=== PATIENT | male | born 1960 | race Caucasian/White ===

== ENCOUNTER 2019-07-03 16:04 | Emergency (ER) | payer OTHER ==
[2019-07-03 16:27] VITALS: PULSE 75; O2SAT 99
[2019-07-03] MEDS ORDERED: Adacel Vial IM ONE ×2 (16:35→16:41)
--- NOTE | 2019-07-03 16:56 | ERPHSYRPT ---
- History of Present Illness Time Seen by Provider: 07/03/19 16:20 Source: patient Exam Limitations: no limitations Patient Subjective Stated Complaint: pt stated that he cut his thumb with a box knife, pt stated that the pain is 5/10 Triage Nursing Assessment: pt ambulated into er, pt has laceration left thumb, moderate bleeding present, pt hypertensive, laceration measures 2 cm Physician History: Patient cut his left thumb with a knife one hours prior to coming into the emergency department. Occurred: just prior to arrival Method of Injury: incised Quality: constant Severity of Pain-Max: moderate Severity of Pain-Current: mild Extremities Pain Location: thumb: left (dorsum of thumb) Modifying Factors: Improves With: movement (gapes it open and worsens bleeding) Associated Symptoms: none, No back pain, No chest discomfort, No chest pain, No dyspnea, No fever, No jaw pain, No nausea, No neck pain, No sweating, No short of breath, No vomiting Allergies/Adverse Reactions: Penicillins Allergy (Severe, Verified 12/12/15 09:14) Hives Home Medications: Lorazepam 0.5 mg [Ativan 0.5 MG] 1 tab PO TID PRN 12/12/15 [History] Amlodipine Besylate 5 mg PO DAILY 07/03/19 [History] Doxazosin Mesylate 4 mg PO DAILY 07/03/19 [History] Escitalopram Oxalate [Lexapro] 20 mg PO DAILY 07/03/19 [History] Metoprolol Succinate 50 mg PO DAILY 07/03/19 [History] Hx Tetanus, Diphtheria Vaccination/Date Given: No Hx Influenza Vaccination/Date Given: No Hx Pneumococcal Vaccination/Date Given: No - Review of Systems Constitutional: No Fever, No Lethargy Eyes: No Eye Pain, No Vision Changes Ears, Nose, & Throat: No Ear Pain, No Nose Pain, No Epistaxis, No Mouth Swelling , No Loose Teeth Respiratory: No Cough Cardiac: No Chest Pain Abdominal/Gastrointestinal: No Abdominal Pain, No Nausea, No Vomiting Genitourinary Symptoms: No Flank Pain Musculoskeletal: No Back Pain, No Neck Pain Skin: No Rash Neurological: No Focal Weakness, No Headache Psychological: No Anxiety, No Emotional Lability Hematologic/Lymphatic: No Easy Bleeding, No Easy Bruising - Past Medical History Pertinent Past Medical History: Yes Neurological History: No Pertinent History ENT History: No Pertinent History Cardiac History: Hypertension Respiratory History: Pneumonia Endocrine Medical History: No Pertinent History Musculoskeletal History: Arthritis GI Medical History: No Pertinent History History: No Pertinent History Psycho-Social History: No Pertinent History Male Reproductive Disorders: No Pertinent History Other Medical History: c 6-7 fusion. recent sinus draiange - Past Surgical History Past Surgical History: Yes Neuro Surgical History: Other Cardiac: No Pertinent History Respiratory: No Pertinent History Gastrointestinal: No Pertinent History Genitourinary: No Pertinent History Musculoskeletal: Orthopedic Surgery Male Surgical History: Vasectomy Other Surgical History: c6-7 fusion, right hand surgery, hernia repair - Social History Smoking Status: Former smoker Exposure to second hand smoke: Yes Drug Use: none Patient Lives Alone: No - Nursing Vital Signs Nursing Vital Signs: Initial Vital Signs Temperature 98.9 F 07/03/19 16:16 Pulse Rate 75 07/03/19 16:16 Blood Pressure 200/106 07/03/19 16:16 O2 Sat by Pulse Oximetry 99 07/03/19 16:16 Pain Scale Pain Intensity 5 - Physical Exam General Appearance: no apparent distress Eyes, Ears, Nose, Throat Exam: moist mucous membranes Neck Exam: normal inspection, non-tender, supple, full range of motion Cardiovascular/Respiratory Exam: normal breath sounds, regular rate/rhythm, heart sounds normal Back Exam: normal inspection Shoulder Exam: normal inspection, non-tender, no evidence of injury, normal ROM Elbow/Forearm Exam: normal inspection, non-tender, no evidence of injury, normal ROM Wrist Exam: normal inspection, non-tender, no evidence of injury, normal ROM Hand Exam: normal inspection, non-tender, normal ROM, laceration (dorsum of the left thumb of the proximal phalanx, subcutaneous, measures 2.2cm in length) Neuro/Tendon Exam: normal sensation, normal motor functions, normal tendon functions, no evidence tendon injury Mental Status Exam: alert, oriented x 3, cooperative Skin Exam: normal color, warm, dry SpO2 Interpretation: normal SpO2: 99 O2 Delivery: Room Air Procedures - Laceration/Wound Repair Left Proximal Dorsal Finger Wound Location: Left Wound Length (cm): 2.2 Wound's Depth, Shape: linear, into subcut Wound Explored: clean Irrigated: Yes Hibiclens Prep: Yes Anesthesia: local, 1% Lidocaine Volume Anesthetic (ccs): 4 Wound Debrided: none Suture Size/Type: 4-0, ethilon Number of Sutures: 8 Layer Closure?: No Sterile Dressing Applied?: Yes Ordered Tests: Active Orders 24 hr Category Date Time Status Dressing Care ROUTINE Care 07/03/19 17:03 Active Medication Summary Discontinued Medications Generic Name Dose Route Start Last Admin Trade Name Mita PRN Reason Stop Dose Admin Diphtheria/Tetanus/Acell Pertussis 0.5 ml 07/03/19 16:35 07/03/19 16:42 Adacel Vial IM 07/03/19 16:36 0.5 ml .ONCE ONE Administration Diphtheria/Tetanus/Acell Pertussis Confirm 07/03/19 16:41 Adacel Vial Administered 07/03/19 16:42 Dose 0.5 ml IM .STK-MED ONE - Progress Progress: improved Progress Note: 07/03/19 17:19 Blood pressure is coming down. Patient does have a history of hypertension. Patient has not taken his anti-hypertensives today. Patient has no bleeding from the laceration site with excellent re-approximation. Counseled pt/family regarding: diagnosis, need for follow-up - Departure Departure Disposition: Home Clinical Impression: Laceration of left thumb without complication Qualifiers: Encounter type: initial encounter Qualified Code(s): S61.012A - Laceration without foreign body of left thumb without damage to nail, initial encounter Hypertension Qualifiers: Hypertension type: essential hypertension Qualified Code(s): I10 - Essential ( primary) hypertension Condition: Good Critical Care Time: No Referrals: HUNTER PAITNO [Primary Care Provider] - 07/13/19 (remove 8 sutures) Instructions: High Blood Pressure (DC), Laceration Repair With Stitches (DC), Tdap Vaccine Additional Instructions: Keep area covered. Try not to use the thumb for the next 3 days if your can avoid it. Return if any discoloration to the skin, loss of function to the thumb, loss of sensation to the thumb, loss of strength of the thumb or any other concerning signs or symptoms that were not present at today's emergency department visit for immediate re-evaluation in the emergency department
[2019-07-03 17:12] VITALS: BP 182/92
== END 2019-07-03 17:49 | disposition home or self-care (01) ==
LOC: ED 16:04
DX: S61.012A Laceration without foreign body of left thumb without damage to nail, initial encounter (principal); I10 Essential (primary) hypertension; W26.0XXA Contact with knife, initial encounter; Z79.899 Other long term (current) drug therapy
CPT/HCPCS: 12001; 90471; 90715; 99283